=== PATIENT | female | born 1995 | race Caucasian/White ===

== ENCOUNTER → 2021-01-05 00:02 | Observation (INO) ==
[2021-01-04 23:19] LABS: Bacteria,Urine Few per hpf (None-Few); Bilirubin,Urine Negative (Negative); Blood,Urine Trace (Negative); Clarity,Urine Turbid (Clear); Color,Urine Light-Yellow (Yellow); Glucose,Urine (UA) Normal (Normal); Ketones,Urine Negative (Negative); Leukocyte Esterase,Urine Large (Negative); Mucus,Urine Few per lpf (None-Few); Nitrite,Urine Negative (Negative); PH,Urine 6.5 pH Units (5.0-8.0); Protein,Urine Trace mg/dL (Neg-Trace); RBC,Urine 0-3 per hpf (0-3); Specific Gravity,Urine 1.021 (1.010-1.025); Squamous Epithelial Cell,Urine Few per hpf (None-Few); Urobilinogen,Urine Normal (Normal)
== END | disposition home or self-care (01) ==
LOC: 1NENULAB
PROVIDERS: ADMIT Registered Nurse; ATTEND Registered Nurse

== ENCOUNTER 2021-01-27 21:45 | Inpatient (IN) ==
[2021-01-27] MEDS ORDERED: Metoclopramide 10 MG/2 ML VIAL IVP PRN (21:51)
[2021-01-27] MEDS ORDERED: Famotidine 20 MG/2 ML VIAL IVP PRN (21:51)
[2021-01-27] MEDS ORDERED: miSOPROStoL 25 MCG TABLET VG PRN (21:51)
[2021-01-27] MEDS ORDERED: Ringers Solution, Lactated 1,000 ML IVC SCH (22:00)
[2021-01-27 22:49] LABS: Bilirubin,Urine Negative (Negative); Blood,Urine Negative (Negative); Clarity,Urine Clear (Clear); Color,Urine Light-Yellow (Yellow); Glucose,Urine (UA) Normal (Normal); Ketones,Urine Negative (Negative); Leukocyte Esterase,Urine Negative (Negative); Nitrite,Urine Negative (Negative); PH,Urine 6.5 pH Units (5.0-8.0); Protein,Urine Trace mg/dL (Neg-Trace); Specific Gravity,Urine 1.027 (1.010-1.025); Urobilinogen,Urine Normal (Normal)
[2021-01-27 22:50] LABS: Basophils % 0.2 %; Eosinophils # 0.1 K/mcL (0.0-0.6); Eosinophils % 0.9 %; Hematocrit 33.6 % (35.3-44.9); Hemoglobin 11.7 g/dL (11.5-15.4); Immature Granulocytes % 0.8 % (0-4); Lymphocytes # 2.6 K/mcL (0.6-4.6); Lymphocytes % 22.6 %; Mean Corpuscular HGB Conc 34.8 g/dL (31.6-35.5); Mean Corpuscular Hemoglobin 31.4 pg (28.0-33.3); Mean Corpuscular Volume 90.1 fL (83.0-100.0); Mean Platelet Volume 9.9 fL (9.4-12.4); Monocytes % 8.6 %; Neutrophils # 7.8 K/mcL (1.6-8.9); Platelet Count 227 K/mcL (140-400); Red Blood Count 3.73 M/mcL (3.82-4.97); Segmented Neutrophils % 66.9 %; White Blood Count 11.6 K/mcL (4.3-11.1)
[2021-01-27 22:59] LABS: Amphetamine Screen,Urine Negative ng/mL (Cutoff=1000); Barbiturate Screen,Urine Negative ng/mL (Cutoff=200); Benzodiazepines Screen,Urine Negative ng/mL (Cutoff=200); Cannabinoid Screen,Urine Negative ng/mL (Cutoff = 50); Cocaine Screen,Urine Negative ng/mL (Cutoff= 300); Opiate Screen,Urine Negative ng/mL (Cutoff=300); Phencyclidine Screen,Urine Negative ng/mL (Cutoff=25)
[2021-01-27 23:11] LABS: Alanine Aminotransferase 14 Units/L (7-52); Aspartate Amino Transferase 16 Units/L (13-39); BUN/Creatinine Ratio 19 (6-26); Blood Urea Nitrogen 9 mg/dL (6-20); Lactate Dehydrogenase 132 Units/L (140-271); Uric Acid 4.3 mg/dL (2.3-7.6); eGFR For African Americans > 60 (> 60); eGFR For Non-African Americans > 60 (> 60)
[2021-01-27 23:33] LABS: Influenza A PCR Negative (Negative); Influenza B PCR Negative (Negative); Resp. Syncytial Virus PCR Negative (Negative)
[2021-01-27 23:34] LABS: SARS-CoV-2 by PCR (In House) Negative (Negative)
[2021-01-28 02:02] LABS: Protein/Creatinine Ratio,Urine 0.13 mg/mg (0.00-0.20)
[2021-01-28] MEDS ORDERED: EPHEDrine 50 MG/ML VIAL IVP PRN (08:07)
[2021-01-28] MEDS ORDERED: Epidural Premix (fent/bupiv) 110 ML EP SCH (08:15)
[2021-01-28] MEDS ORDERED: miSOPROStoL 25 MCG TABLET PO STA (08:23)
[2021-01-28] MEDS: *HR* Nalbuphine 10 MG/ML AMPUL IV PRN ×2 (09:22→12:34)
[2021-01-28] MEDS ORDERED: Oxytocin 20 units/ LR 1000 mL 20 UNIT/1,000 ML BAG IVC SCH (12:15)
[2021-01-28] MEDS ORDERED: Ondansetron 4 MG/2 ML VIAL IVP PRN (12:20)
[2021-01-28] MEDS ORDERED: *HR* FentaNYL (PF) 100 MCG/2 ML VIAL ONE (15:02)
[2021-01-28] MEDS ORDERED: 0.9 % Sodium Chloride 1,000 ML ONE (19:14)
[2021-01-28] MEDS ORDERED: Acetaminophen 325 MG TABLET PO ONE (22:23)
[2021-01-28] MEDS ORDERED: Gentamicin 350 MG in 0.9 % Sodium Chloride 100 ML IVPB ONE (23:26)
[2021-01-28] MEDS ORDERED: Clindamycin 900 MG/50 ML 900 MG/50 ML IV.SOLN IVPB ONE (23:26)
[2021-01-29] MEDS ORDERED: Oxytocin 20 units/ LR 1000 mL 20 UNIT/1,000 ML BAG IVC SCH (08:43)
[2021-01-29] MEDS ORDERED: Lanolin 7 G OINT...G. TP PRN (08:43)
[2021-01-29] MEDS ORDERED: Benzocaine/Menthol 56 GM AEROSOL SPRAY TP PRN (08:43)
[2021-01-29] MEDS ORDERED: Ondansetron ODT 4 MG TAB.RAPDIS SL PRN (08:43)
[2021-01-29] MEDS: Ibuprofen 600 MG TABLET PO SCH ×2 (09:27→17:20)
[2021-01-29] MEDS ORDERED: *HR* HYDROcodone/Acet 5/325 mg TABLET PO PRN (10:11)
[2021-01-29] MEDS ORDERED: Methylergonovine 0.2 MG/ML AMPUL IM ONE (13:39)
[2021-01-29] MEDS: Acetaminophen 325 MG TABLET PO SCH ×2 (15:43→21:42)
[2021-01-30] MEDS: Ibuprofen 600 MG TABLET PO SCH ×3 (00:01→21:17)
[2021-01-30] MEDS: Acetaminophen 325 MG TABLET PO SCH ×2 (03:34→21:16)
[2021-01-30 03:58] LABS: Basophils % 0.1 %; Eosinophils # 0.2 K/mcL (0.0-0.6); Eosinophils % 1.2 %; Hematocrit 32.4 % (35.3-44.9); Hemoglobin 10.7 g/dL (11.5-15.4); Immature Granulocytes % 0.7 % (0-4); Lymphocytes # 2.8 K/mcL (0.6-4.6); Mean Corpuscular Hemoglobin 30.7 pg (28.0-33.3); Mean Corpuscular Volume 92.8 fL (83.0-100.0); Monocytes # 1.7 K/mcL (0.0-1.3); Monocytes % 8.9 %; Platelet Count 199 K/mcL (140-400); Red Blood Count 3.49 M/mcL (3.82-4.97); Red Cell Distribution Width 12.3 % (11.5-14.5); Segmented Neutrophils % 74.1 %
[2021-01-30 03:59] LABS: White Blood Count 18.9 K/mcL (4.3-11.1)
[2021-01-30 08:12] VITALS: O2SAT 98
[2021-01-30] MEDS: Prenatal Vit/FA 1 EACH TABLET PO SCH (08:38)
[2021-01-30] MEDS ORDERED: Measles/Mumps/Rubella Vacc 0.5 ML VIAL SQ ONE (15:19)
[2021-01-30 16:15] VITALS: TEMP 98.4
[2021-01-31 07:51] VITALS: BP 114/77; PULSE 77
[2021-01-31] MEDS: Acetaminophen 325 MG TABLET PO SCH (11:52)
[2021-01-31] MEDS: Ibuprofen 600 MG TABLET PO SCH (11:52)
[2021-01-31] MEDS: Prenatal Vit/FA 1 EACH TABLET PO SCH (11:52)
== END 2021-01-31 13:40 | disposition home or self-care (01) | DRG 560 ==
LOC: 1NENULAB 21:45 → 1NENUOBS 01-29 10:35
PROVIDERS: ADMIT Obstetrics & Gynecology; ATTEND Obstetrics & Gynecology